=== PATIENT | female | born 1985 | race Two or more races ===

== ENCOUNTER 2017-02-07 10:32 | Emergency (ER) | payer OTHER ==
[2017-02-07 10:44] VITALS: BP 107/59; PULSE 82; TEMP 98.5; BMI 30.7
--- NOTE | 2017-02-07 12:07 | PDOC ---
History of Present Illness - General Chief Complaint: Cold Symptoms Stated Complaint: COLD SYMPTOMS (20 WKS ) Time Seen by Provider: 02/07/17 11:09 History Source: Patient Exam Limitations: No Limitations - History of Present Illness Initial Comments: 02/07/17 12:05 31-year-old female currently 20 weeks presents to the emergency room with complaints of nasal congestion and cough for the past 2 days. Patient denies fever, chills, headache, dizziness, change in urin change in bowel pattern, rash, recent travel. Patient also denies any medical history and did not take anything for the above since she is concerned with and taking medication. Timing/Duration: reports: other Severity: reports: mild Possible Cause: Yes: no prior episodes Associated Symptoms: reports: cough, nasal congestion, sore throat (mild). denies: fever/chills, headache Past History - Past Medical History Allergies/Adverse Reactions: Allergies Allergy/AdvReac Type Severity Reaction Status Date / Time No Known Allergies Allergy Verified 02/07/17 10:37 COPD: No Other medical history: denies - Suicide/Smoking/Psychosocial Hx Smoking History: Never smoked Have you smoked in the past 12 months: No Information on smoking cessation initiated: No Hx Alcohol Use: No Drug/Substance Use Hx: No Substance Use Type: None Patient Lives Alone: No Lives with/in: spouse/SO Review of Systems - Review of Systems Able to Perform ROS?: Yes Constitutional: No: Symptoms Reported HEENTM: Yes: Nose Congestion, Throat Pain Respiratory: Yes: Cough Cardiac (ROS): No: Symptoms Reported ABD/GI: No: Symptoms Reported : No: Symptoms Reported Musculoskeletal: No: Symptoms Reported Integumentary: No: Symptoms Reported Neurological: No: Symptoms reported Hematologic/Lymphatic: No: Symptoms Reported *Physical Exam - Vital Signs Last Vital Signs Temp Pulse Resp BP Pulse Ox 98.5 F 82 18 107/59 100 02/07/17 10:35 02/07/17 10:35 02/07/17 10:35 02/07/17 10:35 02/07/17 10:35 - Physical Exam General Appearance: Yes: Nourished, Appropriately Dressed. No: Apparent Distress HEENT: positive: EOMI, GEO, Nasal Congestion, Rhinorrhea (clear bilateral). negative: Pharyngeal Erythema, Tonsillar Exudate Neck: negative: Lymphadenopathy (R), Lymphadenopathy (L) Respiratory/Chest: positive: Lungs Clear, Normal Breath Sounds. negative: Respiratory Distress, Accessory Muscle Use Cardiovascular: positive: Regular Rhythm, Regular Rate. negative: Murmur Integumentary: positive: Normal Color, Warm, Moist Neurologic: positive: Motor Strength 5/5 (ambulatory) Medical Decision Making - Medical Decision Making 02/07/17 12:12 Patient complaints of runny nose, intermittent cough worsened at night sore throat,. Patient exam had rhinorrhea with no pharyngeal erythema or tonsillar enlargement or lymphadenopathy. Patient with likely postnasal drip/allergic rhinitis. Patient discharged home with Claritin which is safe in . Patient also recommended to take Tylenol for discomfort. *DC/Admit/Observation/Transfer Diagnosis at time of Disposition: Postnasal drip - Discharge Dispostion Disposition: HOME Condition at time of disposition: Good - Referrals - Patient Instructions Printed Discharge Instructions: DI for Nasal Congestion Additional Instructions: Please take Claritin 10 mg daily as needed for symptoms to the next few days until symptoms resolve. Keep nasal passages clear. May use humidifier in room at night to help moisturize her passages. May take Tylenol which is safe in as needed for discomfort. If symptoms worsen despite above recommendations to be return to the ED. otherwise follow-up with your primary care physician. Print Language: IRISH - Post Discharge Activity
== END 2017-02-07 12:24 | disposition home or self-care (01) ==
LOC: JERFT 10:32 → JER 10:32
DX: O99.89 Other specified diseases and conditions complicating pregnancy, childbirth and the puerperium (principal); J30.89 Other allergic rhinitis; Z3A.20 20 weeks gestation of pregnancy
CPT/HCPCS: 99281-25